=== PATIENT | female | born 1955 | race Caucasian/White ===

== ENCOUNTER 2022-12-22 04:03 | Inpatient (IN) | payer OTHER, BC ==
[2022-12-18 16:15] VITALS: BMI 31.2
[2022-12-22] MEDS ORDERED: THROMBIN (BOVINE) 5,000 UNIT VIAL TP ONE ×2 (07:08→09:47)
[2022-12-22] MEDS ORDERED: GENTAMICIN SO4 80 MG/2 ML VIAL ONE (07:08)
[2022-12-22] MEDS ORDERED: BUPIVACAINE HCL/PF 0.5% (5MG/ML) 10 ML VIAL ONE (07:08)
[2022-12-22] MEDS ORDERED: VANCOMYCIN 1,000 MG VIAL (RESTRICTED TO ID ONLY) ONE ×3 (07:08→13:19)
[2022-12-22] MEDS ORDERED: BUPIVACAINE LIPOSOME/PF (EXPAREL) 266 MG/20 ML VIAL ONE (07:09)
[2022-12-22] MEDS ORDERED: PROPOFOL 20 ML ONE (07:59)
[2022-12-22] MEDS ORDERED: LIDOCAINE HCL/PF 2% SDV 5ML VIAL ONE (07:59)
[2022-12-22] MEDS ORDERED: MIDAZOLAM HCL 2 MG/2 ML SINGLE DOSE VIAL ONE (07:59)
[2022-12-22] MEDS ORDERED: ROCURONIUM BROMIDE 50 MG/5 ML SYRINGE ONE ×2 (07:59→09:09)
[2022-12-22] MEDS ORDERED: BENZOIN/ALOE VERA/STORAX/TOLU 58 ML BOTTLE ONE (08:21)
[2022-12-22] MEDS ORDERED: morphine SULFATE/PF 1 MG/2 ML (2cc Syringe - QUVA) IT ONE (08:45)
[2022-12-22] MEDS ORDERED: VANCOMYCIN 1,000 MG VIAL (RESTRICTED TO ID ONLY) IVPB ONE (09:00)
[2022-12-22] MEDS ORDERED: LIDOCAINE 1%/EPI 1:100000 (50 ML MULTI DOSE VIAL) PNB ONE ×2 (09:00→09:09)
[2022-12-22] MEDS ORDERED: ceFAZolin SODIUM 1 GM VIAL IVPB ONE ×2 (09:00→13:00)
[2022-12-22] MEDS ORDERED: GENTAMICIN SO4 80 MG/2 ML VIAL IVPB ONE (09:46)
[2022-12-22] MEDS ORDERED: HYDROGEN PEROXIDE 473 ML PO ONE (09:47)
[2022-12-22] MEDS ORDERED: BUPIVACAINE LIPOSOME/PF (EXPAREL) 266 MG/20 ML VIAL NR ONE ×2 (09:48→12:20)
[2022-12-22] MEDS ORDERED: DEXAMETHASONE SOD PHOSPHATE 4 MG/1 ML VIAL ONE (13:19)
[2022-12-22] MEDS ORDERED: ceFAZolin SODIUM 1 GM VIAL ONE ×3 (13:19)
[2022-12-22] MEDS ORDERED: TRANEXAMIC ACID 1000 MG/10 ML VIAL ONE (13:19)
[2022-12-22] MEDS ORDERED: ONDANSETRON 4 MG/2 ML VIAL ONE (13:19)
[2022-12-22] MEDS ORDERED: KETOROLAC TROMETHAMINE 30 MG/1 ML VIAL ONE (13:19)
[2022-12-22] MEDS ORDERED: NEOSTIGMINE METHYLSULFATE 0.5 MG/1 ML - 10 ML MDV ONE (13:20)
[2022-12-22] MEDS ORDERED: GLYCOPYRROLATE 0.2 MG/1 ML VIAL ONE ×2 (13:20)
[2022-12-22] MEDS ORDERED: NALOXONE HCL 0.4 MG/ML VIAL IVPUSH PRN (14:25)
[2022-12-22] MEDS ORDERED: oxyCODONE HCL 5 MG TABLET PO PRN ×2 (14:25)
[2022-12-22] MEDS ORDERED: ONDANSETRON 4 MG/2 ML VIAL IVPUSH PRN ×2 (14:25→14:37)
[2022-12-22] MEDS ORDERED: ACETAMINOPHEN 325 MG TABLET (FP) PO SCH (14:30)
[2022-12-22] MEDS ORDERED: diphenhydrAMINE HCL 25 MG CAPSULE (FP) PO PRN (14:37)
[2022-12-22 15:31] LABS: BASO % 0.2 % (0-2.0); EOS % 0.2 % (0-4.5); HEMATOCRIT 37.8 % (32.4-45.2); HEMOGLOBIN 12.5 GM/dL (10.7-15.3); LYMPH % 9.2 % (8-40); MEAN PLT VOLUME 8.1 fl (7.5-11.1); MONO % 4.2 % (3.8-10.2); NEUT % 86.2 % (42.8-82.8); PLATELET COUNT 197 10^3/uL (134-434); RDW 14.5 % (11.6-15.6); WHITE BLOOD COUNT 8.7 K/mm3 (4.0-10.0)
[2022-12-22 15:46] LABS: CALCIUM 7.9 mg/dL (8.5-10.1)
[2022-12-22 15:47] LABS: BLOOD UREA NITROGEN 15.6 mg/dL (7-18)
[2022-12-22 15:50] LABS: CREATININE 0.7 mg/dL (0.55-1.3)
[2022-12-22] MEDS ORDERED: SODIUM CHLORIDE 500 ML IV STA (17:01)
[2022-12-22] MEDS: LACTATED RINGERS SOLUTION 1,000 ML/1,000 ML INFUS.BAG IV SCH (17:01)
[2022-12-22] MEDS: ACETAMINOPHEN 1000 MG/100 ML BAG IVPB SCH (20:18)
[2022-12-22] MEDS: CEFAZOLIN 1 GM in DEXTROSE 5%-WATER - 50 ML IVPB SCH (21:19)
[2022-12-22] MEDS: HEPARIN NA (PORCINE) 5,000 UNITS/ML 1ML VIAL SQ SCH (22:07)
[2022-12-22] MEDS: DOCUSATE SODIUM 100 MG CAPSULE (FP) PO SCH (22:07)
[2022-12-23] MEDS: CEFAZOLIN 1 GM in DEXTROSE 5%-WATER - 50 ML IVPB SCH ×3 (01:13→17:29)
[2022-12-23] MEDS: ACETAMINOPHEN 1000 MG/100 ML BAG IVPB SCH ×3 (04:30→20:30)
[2022-12-23] MEDS: HEPARIN NA (PORCINE) 5,000 UNITS/ML 1ML VIAL SQ SCH ×3 (06:05→21:42)
[2022-12-23] MEDS: DOCUSATE SODIUM 100 MG CAPSULE (FP) PO SCH ×3 (06:05→21:42)
[2022-12-23 08:01] LABS: HEMATOCRIT 29.1 % (32.4-45.2); HEMOGLOBIN 9.8 GM/dL (10.7-15.3); MCH 29.1 pg (25.7-33.7); MCHC 33.6 g/dl (32.0-36.0); MEAN CELL VOLUME 86.6 fl (80-96); MEAN PLT VOLUME 8.2 fl (7.5-11.1); PLATELET COUNT 155 10^3/uL (134-434); RBC 3.37 M/mm3 (3.60-5.2); RDW 14.3 % (11.6-15.6); WHITE BLOOD COUNT 8.9 K/mm3 (4.0-10.0)
[2022-12-23 09:03] LABS: CALCIUM 7.7 mg/dL (8.5-10.1)
[2022-12-23 09:04] LABS: BLOOD UREA NITROGEN 11.9 mg/dL (7-18)
[2022-12-23 09:07] LABS: CREATININE 0.5 mg/dL (0.55-1.3)
[2022-12-23] MEDS ORDERED: DULoxetine HCL 20 MG CAPSULE.DR PO SCH ×2 (10:00→11:34)
[2022-12-23] MEDS: FOLIC ACID 1 MG TABLET (FP) PO SCH (10:51)
[2022-12-23] MEDS: LACTATED RINGERS SOLUTION 1,000 ML/1,000 ML INFUS.BAG IV SCH (10:51)
[2022-12-23] MEDS: FERROUS SO4 325 MG TABLET (FP) PO SCH ×2 (10:54→11:10)
[2022-12-23] MEDS ORDERED: LACTATED RINGERS SOLUTION 1,000 ML/1,000 ML INFUS.BAG IV SCH (11:10)
[2022-12-23] MEDS: oxyCODONE HCL 10 MG SUSTAINED ACTING TABLET PO SCH (21:45)
[2022-12-24] MEDS: CEFAZOLIN 1 GM in DEXTROSE 5%-WATER - 50 ML IVPB SCH ×3 (01:28→17:04)
[2022-12-24] MEDS: ACETAMINOPHEN 1000 MG/100 ML BAG IVPB SCH (05:07)
[2022-12-24] MEDS: DOCUSATE SODIUM 100 MG CAPSULE (FP) PO SCH ×3 (06:12→21:37)
[2022-12-24] MEDS: HEPARIN NA (PORCINE) 5,000 UNITS/ML 1ML VIAL SQ SCH ×3 (06:12→21:36)
[2022-12-24 07:27] LABS: BASO % 0.3 % (0-2.0); HEMATOCRIT 27.9 % (32.4-45.2); HEMOGLOBIN 9.5 GM/dL (10.7-15.3); LYMPH % 10.9 % (8-40); MCH 30.3 pg (25.7-33.7); MCHC 34.2 g/dl (32.0-36.0); MEAN CELL VOLUME 88.7 fl (80-96); MEAN PLT VOLUME 8.4 fl (7.5-11.1); MONO % 9.1 % (3.8-10.2); NEUT % 79.7 % (42.8-82.8); PLATELET COUNT 142 10^3/uL (134-434); RBC 3.14 M/mm3 (3.60-5.2); RDW 14.2 % (11.6-15.6); WHITE BLOOD COUNT 8.9 K/mm3 (4.0-10.0)
[2022-12-24 08:26] LABS: MAGNESIUM 1.7 mg/dL (1.8-2.4)
[2022-12-24 08:30] LABS: PHOSPHOROUS 1.8 mg/dL (2.5-4.9)
[2022-12-24] MEDS: FOLIC ACID 1 MG TABLET (FP) PO SCH (09:35)
[2022-12-24] MEDS: FERROUS SO4 325 MG TABLET (FP) PO SCH (09:35)
[2022-12-24] MEDS: oxyCODONE HCL 10 MG SUSTAINED ACTING TABLET PO SCH (09:39)
[2022-12-24] MEDS ORDERED: MAGNESIUM SULF 50% (8.12 MEQ/2 ML-1 GM VIAL) IVPB ONE (09:53)
[2022-12-24] MEDS ORDERED: NAPH,MB-DB/K PH,MBDB POWDER PACKET PO ONE (18:32)
[2022-12-24] MEDS: ACETAMINOPHEN 500 MG TABLET (FP) PO SCH (22:42)
[2022-12-25] MEDS: CEFAZOLIN 1 GM in DEXTROSE 5%-WATER - 50 ML IVPB SCH ×3 (02:40→17:51)
[2022-12-25] MEDS: DOCUSATE SODIUM 100 MG CAPSULE (FP) PO SCH ×4 (06:51→21:18)
[2022-12-25] MEDS: ACETAMINOPHEN 500 MG TABLET (FP) PO SCH ×3 (06:51→16:46)
[2022-12-25] MEDS: HEPARIN NA (PORCINE) 5,000 UNITS/ML 1ML VIAL SQ SCH ×3 (06:51→21:18)
[2022-12-25] MEDS ORDERED: NALOXONE HCL 0.4 MG/ML VIAL IVPUSH PRN (07:35)
[2022-12-25] MEDS ORDERED: diphenhydrAMINE HCL 25 MG CAPSULE (FP) PO PRN (07:35)
[2022-12-25] MEDS ORDERED: morphine SULFATE/PF 1 MG/2 ML (2cc Syringe - QUVA) IT ONE (07:35)
[2022-12-25 08:39] LABS: HEMOGLOBIN 9.1 GM/dL (10.7-15.3); MCH 29.7 pg (25.7-33.7); MCHC 33.7 g/dl (32.0-36.0); MEAN CELL VOLUME 88.3 fl (80-96); MEAN PLT VOLUME 8.3 fl (7.5-11.1); PLATELET COUNT 157 10^3/uL (134-434); RBC 3.05 M/mm3 (3.60-5.2); RDW 14.1 % (11.6-15.6); WHITE BLOOD COUNT 7.7 K/mm3 (4.0-10.0)
[2022-12-25 08:59] LABS: CALCIUM 8.1 mg/dL (8.5-10.1)
[2022-12-25 09:00] LABS: BLOOD UREA NITROGEN 5.9 mg/dL (7-18)
[2022-12-25 09:03] LABS: CREATININE 0.4 mg/dL (0.55-1.3); PHOSPHOROUS 1.6 mg/dL (2.5-4.9)
[2022-12-25] MEDS: FOLIC ACID 1 MG TABLET (FP) PO SCH (09:37)
[2022-12-25] MEDS: FERROUS SO4 325 MG TABLET (FP) PO SCH (09:37)
[2022-12-25] MEDS: DULoxetine HCL 20 MG CAPSULE.DR PO SCH (09:37)
[2022-12-25] MEDS: ONDANSETRON 4 MG/2 ML VIAL IVPUSH PRN (15:11)
[2022-12-25] MEDS ORDERED: POTASSIUM CHLORIDE ORAL LIQUID 20 MEQ/15 ML PO ONE (15:25)
[2022-12-25] MEDS: oxyCODONE HCL 5 MG TABLET PO PRN (21:10)
[2022-12-25] MEDS: PREGABALIN 50 MG CAPSULE PO SCH (21:18)
[2022-12-25] MEDS: NAPH,MB-DB/K PH,MBDB POWDER PACKET PO SCH (21:18)
[2022-12-26] MEDS: ACETAMINOPHEN 500 MG TABLET (FP) PO SCH ×3 (01:42→14:47)
[2022-12-26] MEDS: CEFAZOLIN 1 GM in DEXTROSE 5%-WATER - 50 ML IVPB SCH ×3 (02:00→17:22)
[2022-12-26] MEDS: oxyCODONE HCL 5 MG TABLET PO PRN ×3 (02:28→23:09)
[2022-12-26] MEDS ORDERED: oxyCODONE HCL 5 MG TABLET PO ONE (05:29)
[2022-12-26] MEDS: HEPARIN NA (PORCINE) 5,000 UNITS/ML 1ML VIAL SQ SCH ×3 (05:35→21:46)
[2022-12-26] MEDS: DOCUSATE SODIUM 100 MG CAPSULE (FP) PO SCH ×3 (05:35→21:45)
[2022-12-26 09:34] LABS: BASO % 0.4 % (0-2.0); EOS % 1.1 % (0-4.5); HEMOGLOBIN 9.3 GM/dL (10.7-15.3); LYMPH % 29.4 % (8-40); MCHC 34.4 g/dl (32.0-36.0); MEAN CELL VOLUME 87.2 fl (80-96); MEAN PLT VOLUME 7.7 fl (7.5-11.1); MONO % 8.5 % (3.8-10.2); NEUT % 60.6 % (42.8-82.8); PLATELET COUNT 201 10^3/uL (134-434); RDW 14.4 % (11.6-15.6); WHITE BLOOD COUNT 6.2 K/mm3 (4.0-10.0)
[2022-12-26 09:51] LABS: CALCIUM 8.2 mg/dL (8.5-10.1)
[2022-12-26 09:52] LABS: ALBUMIN 2.1 g/dl (3.4-5.0); BLOOD UREA NITROGEN 7.8 mg/dL (7-18)
[2022-12-26] MEDS: FOLIC ACID 1 MG TABLET (FP) PO SCH (09:53)
[2022-12-26] MEDS: DULoxetine HCL 20 MG CAPSULE.DR PO SCH ×2 (09:53→09:56)
[2022-12-26] MEDS: PREGABALIN 50 MG CAPSULE PO SCH ×2 (09:53→21:45)
[2022-12-26] MEDS: FERROUS SO4 325 MG TABLET (FP) PO SCH (09:53)
[2022-12-26] MEDS: NAPH,MB-DB/K PH,MBDB POWDER PACKET PO SCH ×2 (09:53→21:45)
[2022-12-26 09:55] LABS: CREATININE 0.5 mg/dL (0.55-1.3); PHOSPHOROUS 2.4 mg/dL (2.5-4.9)
[2022-12-26 09:56] LABS: BILIRUBIN,TOTAL 0.5 mg/dL (0.2-1); TOT PROT 4.8 g/dl (6.4-8.2)
[2022-12-26] MEDS: POLYETHYLENE GLYCOL (HEALTHYLAX) 3350 17 GM PACKET PO SCH (10:29)
[2022-12-26] MEDS: SENNOSIDES 8.6MG TABLET (FP) PO PRN (22:28)
[2022-12-27] MEDS: CEFAZOLIN 1 GM in DEXTROSE 5%-WATER - 50 ML IVPB SCH ×3 (01:26→17:31)
[2022-12-27] MEDS: oxyCODONE HCL 5 MG TABLET PO PRN ×2 (05:12→20:36)
[2022-12-27] MEDS: DOCUSATE SODIUM 100 MG CAPSULE (FP) PO SCH ×3 (05:13→21:31)
[2022-12-27] MEDS: HEPARIN NA (PORCINE) 5,000 UNITS/ML 1ML VIAL SQ SCH ×3 (05:13→21:32)
[2022-12-27] MEDS: diazePAM 2 MG TABLET PO PRN ×2 (07:42→23:07)
[2022-12-27 09:29] LABS: BASO % 0.4 % (0-2.0); EOS % 2.4 % (0-4.5); HEMOGLOBIN 8.8 GM/dL (10.7-15.3); LYMPH % 32.8 % (8-40); MCH 29.7 pg (25.7-33.7); MCHC 33.8 g/dl (32.0-36.0); MEAN CELL VOLUME 87.6 fl (80-96); MEAN PLT VOLUME 7.2 fl (7.5-11.1); MONO % 8.4 % (3.8-10.2); PLATELET COUNT 213 10^3/uL (134-434); RBC 2.96 M/mm3 (3.60-5.2); RDW 14.4 % (11.6-15.6); WHITE BLOOD COUNT 5.2 K/mm3 (4.0-10.0)
[2022-12-27 10:01] LABS: BLOOD UREA NITROGEN 9.9 mg/dL (7-18)
[2022-12-27 10:04] LABS: CALCIUM 8.4 mg/dL (8.5-10.1)
[2022-12-27 10:06] LABS: CREATININE 0.5 mg/dL (0.55-1.3)
[2022-12-27 10:07] LABS: PHOSPHOROUS 3.4 mg/dL (2.5-4.9)
[2022-12-27 10:11] LABS: BILIRUBIN,TOTAL 0.7 mg/dL (0.2-1); TOT PROT 4.6 g/dl (6.4-8.2)
[2022-12-27] MEDS: FERROUS SO4 325 MG TABLET (FP) PO SCH (10:13)
[2022-12-27] MEDS: FOLIC ACID 1 MG TABLET (FP) PO SCH (10:13)
[2022-12-27] MEDS ORDERED: ACETAMINOPHEN 325 MG TABLET (FP) PO PRN (10:13)
[2022-12-27] MEDS: POLYETHYLENE GLYCOL (HEALTHYLAX) 3350 17 GM PACKET PO SCH (10:14)
[2022-12-27] MEDS: NAPH,MB-DB/K PH,MBDB POWDER PACKET PO SCH ×2 (10:14→21:31)
[2022-12-27] MEDS: DULoxetine HCL 20 MG CAPSULE.DR PO SCH (10:15)
[2022-12-27] MEDS: PREGABALIN 50 MG CAPSULE PO SCH ×2 (10:16→21:31)
[2022-12-27] MEDS ORDERED: BISACODYL 10 MG SUPP.RECT PR ONE (10:29)
[2022-12-27] MEDS ORDERED: ACETAMINOPHEN 1000 MG/100 ML BAG IVPB ONE ×2 (10:30→23:57)
[2022-12-27] MEDS ORDERED: ACETAMINOPHEN 325 MG TABLET (FP) PO SCH (12:00)
[2022-12-27] MEDS: SENNOSIDES 8.6MG TABLET (FP) PO PRN (20:36)
[2022-12-28] MEDS: CEFAZOLIN 1 GM in DEXTROSE 5%-WATER - 50 ML IVPB SCH ×2 (02:03→10:21)
[2022-12-28] MEDS: oxyCODONE HCL 5 MG TABLET PO PRN (02:38)
[2022-12-28] MEDS: HEPARIN NA (PORCINE) 5,000 UNITS/ML 1ML VIAL SQ SCH ×3 (05:36→22:55)
[2022-12-28] MEDS: DOCUSATE SODIUM 100 MG CAPSULE (FP) PO SCH ×3 (05:36→22:55)
[2022-12-28] MEDS ORDERED: oxyCODONE HCL 5 MG TABLET PO PRN ×3 (08:17→08:18)
[2022-12-28 09:56] LABS: BASO % 0.3 % (0-2.0); HEMATOCRIT 27.3 % (32.4-45.2); HEMOGLOBIN 9.3 GM/dL (10.7-15.3); LYMPH % 20.4 % (8-40); MCH 29.9 pg (25.7-33.7); MCHC 34.2 g/dl (32.0-36.0); MEAN CELL VOLUME 87.6 fl (80-96); MEAN PLT VOLUME 7.3 fl (7.5-11.1); MONO % 10.1 % (3.8-10.2); NEUT % 68.2 % (42.8-82.8); PLATELET COUNT 251 10^3/uL (134-434); RBC 3.11 M/mm3 (3.60-5.2); RDW 14.7 % (11.6-15.6); WHITE BLOOD COUNT 6.4 K/mm3 (4.0-10.0)
[2022-12-28 10:19] LABS: CALCIUM 8.5 mg/dL (8.5-10.1)
[2022-12-28 10:20] LABS: BLOOD UREA NITROGEN 8.4 mg/dL (7-18)
[2022-12-28 10:23] LABS: CREATININE 0.5 mg/dL (0.55-1.3); PHOSPHOROUS 3.4 mg/dL (2.5-4.9)
[2022-12-28 10:24] LABS: TOT PROT 4.7 g/dl (6.4-8.2)
[2022-12-28] MEDS: ONDANSETRON 4 MG/2 ML VIAL IVPUSH PRN (10:24)
[2022-12-28 11:01] LABS: BILIRUBIN,TOTAL 0.4 mg/dL (0.2-1)
[2022-12-28] MEDS: FOLIC ACID 1 MG TABLET (FP) PO SCH (11:12)
[2022-12-28] MEDS: FERROUS SO4 325 MG TABLET (FP) PO SCH (11:12)
[2022-12-28] MEDS: PREGABALIN 50 MG CAPSULE PO SCH ×2 (11:12→22:55)
[2022-12-28] MEDS: POLYETHYLENE GLYCOL (HEALTHYLAX) 3350 17 GM PACKET PO SCH (11:12)
[2022-12-28] MEDS: NAPH,MB-DB/K PH,MBDB POWDER PACKET PO SCH ×2 (11:13→22:55)
[2022-12-28] MEDS: DULoxetine HCL 20 MG CAPSULE.DR PO SCH (11:20)
[2022-12-28] MEDS ORDERED: BISACODYL 5 MG TABLET.DR (FP) PO ONE (14:32)
[2022-12-29] MEDS: HEPARIN NA (PORCINE) 5,000 UNITS/ML 1ML VIAL SQ SCH ×2 (07:00→13:44)
[2022-12-29] MEDS: DOCUSATE SODIUM 100 MG CAPSULE (FP) PO SCH ×2 (07:01→13:46)
[2022-12-29 07:25] VITALS: RESP 20
[2022-12-29] MEDS ORDERED: LACTULOSE 20 GM/30 ML UDC (FOR ORAL USE ONLY) PO ONE (08:38)
[2022-12-29] MEDS: DULoxetine HCL 20 MG CAPSULE.DR PO SCH (09:37)
[2022-12-29] MEDS: PREGABALIN 50 MG CAPSULE PO SCH (09:38)
[2022-12-29] MEDS: NAPH,MB-DB/K PH,MBDB POWDER PACKET PO SCH (09:38)
[2022-12-29 11:10] LABS: BASO % 0.3 % (0-2.0); EOS % 1.9 % (0-4.5); HEMATOCRIT 29.1 % (32.4-45.2); HEMOGLOBIN 9.9 GM/dL (10.7-15.3); LYMPH % 24.1 % (8-40); MCH 29.9 pg (25.7-33.7); MEAN PLT VOLUME 6.8 fl (7.5-11.1); MONO % 6.8 % (3.8-10.2); NEUT % 66.9 % (42.8-82.8); PLATELET COUNT 338 10^3/uL (134-434); RDW 14.7 % (11.6-15.6); WHITE BLOOD COUNT 6.7 K/mm3 (4.0-10.0)
[2022-12-29 11:32] LABS: ALBUMIN 2.1 g/dl (3.4-5.0); CALCIUM 8.4 mg/dL (8.5-10.1)
[2022-12-29 11:33] LABS: BLOOD UREA NITROGEN 11.4 mg/dL (7-18); MAGNESIUM 2.1 mg/dL (1.8-2.4)
[2022-12-29 11:35] LABS: CREATININE 0.6 mg/dL (0.55-1.3)
[2022-12-29 11:36] LABS: BILIRUBIN,TOTAL 0.4 mg/dL (0.2-1); PHOSPHOROUS 2.3 mg/dL (2.5-4.9); TOT PROT 5.2 g/dl (6.4-8.2)
[2022-12-29] MEDS ORDERED: SCOPOLAMINE HYDROBROMIDE 1 PATCH PATCH.TD72 TD SCH (12:00)
[2022-12-29] MEDS ORDERED: POLYETHYLENE GLYCOL (HEALTHYLAX) 3350 17 GM PACKET PO SCH (14:00)
[2022-12-29 14:56] VITALS: BP 125/72; PULSE 102; TEMP 98.1
[2022-12-29] MEDS ORDERED: SENNOSIDES 8.6MG TABLET (FP) PO SCH (22:00)
== END 2022-12-29 18:25 | DRG 454 ==
LOC: J2C 04:03 → EDSTATUS 08:00 → J4W 18:05 → J8W 12-24 22:11
PROVIDERS: ADMIT Neurological Surgery; ATTEND Nurse Practitioner Acute Care
PROC: 0SG1071 Fusion of 2 or more Lumbar Vertebral Joints with Autologous Tissue Substitute, Posterior Approach, Posterior Column, Open Approach (ICD-10-PCS; 2022-12-22)
PROC: 0SB20ZZ Excision of Lumbar Vertebral Disc, Open Approach (ICD-10-PCS; 2022-12-22)
PROC: 0SG30AJ Fusion of Lumbosacral Joint with Interbody Fusion Device, Posterior Approach, Anterior Column, Open Approach (ICD-10-PCS; 2022-12-22)
PROC: 0SG3071 Fusion of Lumbosacral Joint with Autologous Tissue Substitute, Posterior Approach, Posterior Column, Open Approach (ICD-10-PCS; 2022-12-22)
PROC: 0SB40ZZ Excision of Lumbosacral Disc, Open Approach (ICD-10-PCS; 2022-12-22)
PROC: 4A11X4G Monitoring of Peripheral Nervous Electrical Activity, Intraoperative, External Approach (ICD-10-PCS; 2022-12-22)
PROC: 30233N1 Transfusion of Nonautologous Red Blood Cells into Peripheral Vein, Percutaneous Approach (ICD-10-PCS; 2022-12-22)
PROC: 0SG10AJ Fusion of 2 or more Lumbar Vertebral Joints with Interbody Fusion Device, Posterior Approach, Anterior Column, Open Approach (ICD-10-PCS; principal; 2022-12-22 08:00)
DX: M47.816 Spondylosis without myelopathy or radiculopathy, lumbar region (principal); D62 Acute posthemorrhagic anemia; M47.817 Spondylosis without myelopathy or radiculopathy, lumbosacral region; M48.061 Spinal stenosis, lumbar region without neurogenic claudication; M48.07 Spinal stenosis, lumbosacral region; F41.8 Other specified anxiety disorders; R79.89 Other specified abnormal findings of blood chemistry
CPT/HCPCS: 36415; 72131-TC; 76000-TC-FY; 80048; 80053; 83735; 84100; 85025; 85027; 86850; 86900; 86901; 86922; 93970-TC; 94010; 94760; 97116-GP; 97162-GP; C1713; C1789; C1889; C9803-CS; J1644; P9058; U0003; U0005